=== PATIENT | female | born 1965 ===

== ENCOUNTER 2017-05-10 23:47 | Emergency (ER) | payer MEDICAID ==
[~2017-05-10] VITALS: Ht 149.9 cm; Wt 69.1 kg
[~2017-05-10 23:47] MED LIST: CYAN10008 PO; IBUP200C PO; LISI-571 PO; LOVA10TA PO; METF500T4 PO; OXYC5TAB72 PO; POLY17PO6 PO
[2017-05-10 23:55] VITALS: BP 124/85; PULSE 96; RESP 16; O2SAT 100
--- NOTE | 2017-05-11 00:16 | ED.REPORT ---
HPI-General Illness Date of Service May 11, 2017 ED Provider: Dr. Esposito Pt is a 52 y/o female w/ a hx of anxiety, HTN, HLD, NIDDM, presenting to the ED c/o rapid heart palpitations onset today. Her symptoms seem to occur at rest and are relieved by exertion. She does not use caffeine or take Sudafed. She had some beer earlier today and drinks only socially. She denies any illicit drug use. She is not on any beta blockers. She had similar symptoms previously at which time she was told she was dehydrated. She hasn't been drinking much fluids today. She does have a history of anxiety but states she doesn't feel very anxious although she has been under some stress recently. Nursing Notes Stated Complaint: HEART RACING BLOOD SUGAR CHECK Chief Complaint: Dysrhythmia/Cardiac Nursing Notes Reviewed: Yes Allergies: Coded Allergies: No Known Allergies (Verified Allergy, Unknown, 11/05/15) Scheduled Cyanocobalamin (Vitamin B-12) (Vitamin B-12) 1,000 Mcg Tablet 1,000 MCG PO DAILY Lisinopril (Lisinopril) 5 Mg Tablet 10 MG PO DAILY Lovastatin (Lovastatin) 10 Mg Tablet 10 MG PO HS Metformin (Metformin) 500 Mg Tablet 500 MG PO DAILY Polyethylene Glycol 3350 (Miralax) 17 Gm Powd.pack 17 GM PO DAILY Scheduled PRN Ibuprofen (Ibuprofen) 200 Mg Capsule 200 MG PO QID PRN PRN For Pain oxyCODONE (oxyCODONE) 5 Mg Tablet 5 MG PO Q4H PRN PRN For Moderate Pain General Time Seen by MD: 00:15 Chief Complaint Other (palpitations) Hx Obtained From: Patient Arrived By: Walk-in Sudden in Onset?: No Onset Occurred: 9 - 12 hours ago Symptom Duration: Since onset Severity: Current: No pain currently Severity: Maximum: No pain Recent Healthcare: Previous diagnosis Similar Sx Previous: Yes Past Medical History Past Medical History NIDDM HTN HLD Reactive airways disease Diverticulosis Hx colon polyps Hx multiple UTIs Arthritis Anxiety Depression Past Surgical History Oophorectomy R ear Smoking History Smoker Current Status UNK Social History Alcohol Use: "Social" Drug Use: Denies drug use Other Social History: Local resident Ambulatory Status Independent Review of Systems Full Review of Systems Cardiovascular: Reports: Palpitations Psychiatric: Reports: Stress Complete sys rev & neg: except as marked. Physical Exam Vital Signs Vital Signs Date Time Temp Pulse Resp B/P Pulse Ox O2 Delivery O2 Flow Rate FiO2 05/11/17 01:48 36.8 86 26 130/77 100 Room Air 05/11/17 01:45 36.8 86 26 130/77 100 Room Air 05/11/17 00:52 77 14 133/75 100 Room Air 05/11/17 00:32 76 18 126/75 99 Room Air 05/10/17 23:55 36.8 96 16 124/85 100 Room Air Initial VS: Reviewed, Vital signs normal Head / Eyes: Atraumatic, Normocephalic Neck: Supple, Full range of motion Respiratory: Breath sounds normal, Clear to auscultation, No respiratory distress Abdomen / GI: Soft, Non-tender Extremities: Vascular intact, Neuro intact, No swelling Skin: Warm, Dry, No cyanosis Neurologic: Alert, Oriented, Nonfocal Psychiatric: Mood/affect normal, Behavior normal, Normal thought content General/Constitutional: Awake, Alert, No acute distress, Well appearing, Cooperative, Not toxic appearing ENT: Airway patent Mouth: Positive: Mucous membranes dry Cardiovascular: Heart rate NL, Regular rhythm, Heart sounds NL, No gallop, No murmurs, No rubs No irregular rhythms or periods of tachycardia on monitor during ~5 minute interview/exam Interpretation & Diagnostics Lab Results Interpretation Result Diagram: 05/11/17 0045 05/11/17 0045 Test 05/11/17 00:28 05/11/17 00:45 Hold Urine Received (Received) White Blood Count 7.1th/mm3 (3.8-10.1) Red Blood Count 4.22mil/mm3 (3.90-5.20) Hemoglobin 12.4g/dL (12.0-15.6) Hematocrit 36.3% (35.0-46.0) Mean Corpuscular Volume 86.0fL (81-100) Mean Corpuscular Hemoglobin 29.4pg (27.0-35.0) Mean Corpuscular Hemoglobin Concent 34.2% (32.0-37.0) Red Cell Distribution Width 13.6% (12.3-15.4) Platelet Count 358bil/L (150-400) Neutrophils (%) (Auto) 60.7% (40-74) Lymphocytes (%) (Auto) 30.4% (14-46) Monocytes (%) (Auto) 6.5% (4-12) Eosinophils (%) (Auto) 1.7% (0-5) Basophils (%) (Auto) 0.4% (0-3) Sodium Level 139mEq/L (134-144) Potassium Level 4.2mEq/L (3.5-5.2) Chloride Level 103mEq/L (97-108) Carbon Dioxide Level 22mmol/L (18-29) Blood Urea Nitrogen 6mg/dL (6-24) Creatinine 0.63mg/dL (0.57-1.00) Estimat Glomerular Filtration Rate 143mL/min (>59) Glucose Level 110mg/dL (60-99) Calcium Level 9.0mg/dL (8.5-10.1) Magnesium Level 1.9mg/dL (1.6-2.6) Total Bilirubin 0.3mg/dL (0.0-1.2) Aspartate Amino Transf (AST/SGOT) 24U/L (0-50) Alanine Aminotransferase (ALT/SGPT) 24U/L (0-32) Alkaline Phosphatase 80U/L (25-150) Total Protein 7.5g/dL (6.4-8.4) Albumin 4.5g/dL (3.4-5.0) Lab values outside NL range: no clinical significance. ECG Interpretation Time: 00:40 Interpreted by: ED physician Normal ECG Interpretation: Normal ECG w/ rate of... (77), Normal rate, Normal sinus rhythm, No acute ischemic changes, Normal QRS, Normal axis, Normal intervals, No change from prior ECGs, Adequate tracing Re-Eval/Medical Decision Med Decision/Clinical Course No abnormalities were seen on lab exam. The patient improved with hydration and her mild headache went away. I suspect that she was mildly dehydrated secondary to the hot weather we have been having. Encourage hydration. Time of Eval: 01:48 Re-Evaluation/Progress Note: Pt rechecked. No abnormalities on moniter during stay. Feeling better after NS. Informed pt of plan for discharge. Pt understands and agrees with plan for discharge. F/U instructions and RTER warnings given. All questions addressed. Counseled Regarding: Diagnosis, Lab results, Need for follow-up, When/why to return to ED Discharge & Departure Primary Impression: Dehydration Additional Impression: Anxiety Disposition: Home Discharge Condition All VS Reviewed: Yes Condition: Improved Patient Instructions: Dehydration (ED) Additional Instructions: Your labs are all normal. You were given 1 L of intravenous normal saline. Continue to drink plenty of fluids. There is no evidence at this time of a serious condition. I suspect that your racing heart may be due in part to stress and anxiety. Referrals: Jean Alvarez MD (PCP) Scribe Attestation Portions of this note were transcribed by Timmy Green. I, Dr. Esposito personally performed the history, physical exam and medical decision-making; I reviewed and confirmed the accuracy of the information in the transcribed note. copies to: Jean Alvarez MD, Howard L MD May 11, 2017 00:16 TIMMY GREEN May 11, 2017 00:28
[2017-05-11] MEDS ORDERED: Ondansetron 2 mg/mL 2 mL Inj IVPUSH PRN (00:30)
[2017-05-11] MEDS ORDERED: 0.9% Sodium Chloride 1,000 ML IV ONE (00:30)
[2017-05-11 00:32] VITALS: BP 126/75; PULSE 76; RESP 18; O2SAT 99
[2017-05-11 00:52] VITALS: BP 133/75; PULSE 77; RESP 14; O2SAT 100
[2017-05-11 00:56] LABS: BASOPHILS % (AUTO) 0.4 % (0-3); EOSINOPHILS % (AUTO) 1.7 % (0-5); MONOCYTES % (AUTO) 6.5 % (4-12); Mean Corpuscular Hemoglobin 29.4 pg (27.0-35.0); NEUTROPHILS % (AUTO) 60.7 % (40-74); Platelet Count 358 bil/L (150-400)
[2017-05-11 01:26] LABS: Magnesium 1.9 mg/dL (1.6-2.6)
[2017-05-11 01:45] VITALS: BP 130/77; PULSE 86; RESP 26; O2SAT 100
[2017-05-11 01:48] VITALS: BP 130/77; PULSE 86; RESP 26; O2SAT 100
== END 2017-05-11 02:05 | disposition home or self-care (01) ==
LOC: SED 23:47
DX: E86.0 Dehydration (principal); F41.9 Anxiety disorder, unspecified; I10 Essential (primary) hypertension; E78.5 Hyperlipidemia, unspecified; E11.9 Type 2 diabetes mellitus without complications; F41.8 Other specified anxiety disorders; Z87.440 Personal history of urinary (tract) infections; Z79.84 Long term (current) use of oral hypoglycemic drugs
CPT/HCPCS: 36415; 80053; 82948; 83735; 85025; 93005; 96361; 96374; 99285; J2405; J7030